=== PATIENT | male | born 1995 | race Two or more races ===

== ENCOUNTER 2017-11-29 01:16 | Emergency (ER) | payer OTHER ==
[2017-11-29] MEDS: LIDOCAINE W/EPINEPHRINE 1% 20ML VIAL SC (02:30)
== END 2017-11-29 02:54 | disposition home or self-care (01) ==
LOC: M ED 01:16
DX: S61.411A Laceration without foreign body of right hand, initial encounter (principal); W10.1XXA Fall (on)(from) sidewalk curb, initial encounter; Y92.410 Unspecified street and highway as the place of occurrence of the external cause; F17.210 Nicotine dependence, cigarettes, uncomplicated
CPT/HCPCS: 12001

== ENCOUNTER 2021-01-25 21:47 | Emergency (ER) | payer OTHER ==
[~2021-01-25] VITALS: Ht 182.9 cm; Wt 86.5 kg
--- NOTE | 2021-01-25 23:51 | REPVR ---
PROCEDURE INFORMATION: Exam: US Scrotum and US Duplex Artery and Vein, Scrotum, Complete Exam date and time: 01/25/2021 11:34 PM Age: 25 years old Clinical indication: Scrotum pain; Additional info: Right testicular pain TECHNIQUE: Imaging protocol: Real-time ultrasound of the scrotum. Real-time duplex ultrasound scan of the arterial and venous flow of the scrotum with B-mode, color Doppler flow and spectral waveform analysis. Complete exam. Duplex images required to evaluate vascular conditions. COMPARISON: No relevant prior studies available. FINDINGS: Right testicle: The right testicle is normal in appearance. No testicular mass or lesion is noted. The right testicle measures 3.7 cm x 2 cm x 2.5 cm. The arterial and venous color Doppler flow and spectral waveforms within the right testicle are within normal limits. There is no evidence for right testicular torsion or orchitis. Left testicle: The left testicle is normal in appearance. No testicular mass or lesion is noted. The left testicle measures 4 cm x 1.9 cm x 2.7 cm. The arterial and venous color Doppler flow and spectral waveforms within the left testicle are within normal limits. There is no evidence for left testicular torsion or orchitis. Epididymides: The epididymi are normal in appearance. No evidence for epididymitis. Scrotum: No hydrocele is noted. The veins of the left pampiniform plexus measure up to 2.6 mm at rest and 2.9 mm with Valsalva. IMPRESSION: 1. Normal testicles. No testicular torsion, orchitis, or epididymitis. 2. Evidence for a small left varicocele. Electronically signed by: Molina Vann On 01/25/2021 23:50:44 PM
--- NOTE | 2021-01-25 23:51 | REPVR ---
PROCEDURE INFORMATION: Exam: US Pelvis Limited, Transabdominal, Soft tissue Exam date and time: 01/25/2021 11:34 PM Age: 25 years old Clinical indication: Right groin/scrotal pain; Additional info: R/O right hernia TECHNIQUE: Imaging protocol: Real-time transabdominal pelvic ultrasound with image documentation. Limited exam. Exam focused on the soft tissue. COMPARISON: US (Free Form) 01/25/2021 11:08 PM FINDINGS: Soft tissues: No inguinal hernia is seen. No soft tissue fluid collection or mass is seen in the inguinal regions. IMPRESSION: No sonographic evidence for an inguinal hernia. Electronically signed by: Molina Vann On 01/25/2021 23:50:50 PM
[2021-01-26] MEDS ORDERED: CYCL5TAB PO (01:39)
[2021-01-26] MEDS ORDERED: NAPR-837 PO (01:39)
[2021-01-26] MEDS ORDERED: NAPROXEN 250 MG TAB PO ONE (01:40)
[2021-01-26] MEDS ORDERED: CYCLOBENZAPRINE 5MG TABLET PO ONE (01:40)
[2021-01-26 01:53] VITALS: BP 142/58
== END 2021-01-26 01:53 | disposition home or self-care (01) ==
LOC: M ED 21:47
DX: S39.012A Strain of muscle, fascia and tendon of lower back, initial encounter (principal); X50.0XXA Overexertion from strenuous movement or load, initial encounter; Y92.89 Other specified places as the place of occurrence of the external cause; Y93.89 Activity, other specified; Y99.1 Military activity